=== PATIENT | male | born 1990 | race Caucasian/White ===

== ENCOUNTER 2018-01-30 14:39 | Emergency (ER) | payer OTHER ==
[2018-01-30] MEDS: IBUPROFEN 600 MG TAB PO (15:23)
== END 2018-01-30 15:32 | disposition home or self-care (01) ==
LOC: M ED 14:39
DX: S93.401A Sprain of unspecified ligament of right ankle, initial encounter (principal); X50.1XXA Overexertion from prolonged static or awkward postures, initial encounter; Y92.9 Unspecified place or not applicable; Y93.9 Activity, unspecified; Y99.9 Unspecified external cause status; Z72.0 Tobacco use; Z88.8 Allergy status to other drugs, medicaments and biological substances
CPT/HCPCS: 73610